=== PATIENT | female | born 1990 | race Caucasian/White ===

== ENCOUNTER 2017-04-23 12:54 | Day surgery (SDC) | payer OTHER ==
[2017-04-23] MEDS ORDERED: Lidocaine 1% PF 5 ML VIAL ONE (14:47)
--- NOTE | 2017-04-24 00:09 | OP ---
PREOPERATIVE DIAGNOSES: 1. Reflux. 2. Intermittent vomiting. 3. Chronic constipation. POSTOPERATIVE DIAGNOSES: 1. Lagrange grade A reflux esophagitis. 2. Mild erosive gastritis in the antrum, biopsied for Helicobacter pylori. 3. Normal colonoscopy. RECOMMENDATIONS: 1. MiraLax daily. 2. Increase Nexium to 40 mg p.o. b.i.d. 3. Avoid all NSAIDs. 4. If upper GI symptoms persist, consider ultrasound of the gallbladder. ANESTHESIA: TIVA. PROCEDURE IN DETAIL: After the patient was informed of the risks, benefits, and possible complicati ons of endoscopy including perforation, bleeding, reactions to medication and aspiration, informed c onsent was obtained. The patient was brought to the endoscopy suite where she was sedated in a grad ual fashion. Once she was comfortable, a bite block was placed in incisural orifice. The endoscope was advanced through the esophagus, stomach and second and third portion of duodenum and slowly rem bladimir. There was good visualization of the mucosa. There were no masses, lesions, or arteriovenous malformations identified in the duodenum. The duodenum was normal. The stomach was notable for mil d antral gastritis. Biopsies were obtained for Helicobacter pylori induced small erosions scattered in the antrum. Retroflexed views in the stomach were normal. The esophagus was notable for LA gra de A distal esophagitis. There was no evidence of Rica, masses, or any Hunter's. The scope was removed. The patient was turned in the room. A rectal examination was performed. The endoscope w as advanced through anal canal through the colon to the cecum, which was identified by ileocecal ed ve and appendiceal orifice. Terminal ileum was entered and found to be normal. The scope was then slowly removed with good visualization of the mucosa. There were no masses, lesions, or arterioveno us malformations. There were no polyps seen.
== END 2017-04-23 16:05 | disposition home or self-care (01) ==
LOC: SDC 12:54
PROVIDERS: ATTEND Internal Medicine Gastroenterology
PROC: 0DJD8ZZ Inspection of Lower Intestinal Tract, Via Natural or Artificial Opening Endoscopic (ICD-10-PCS; principal; 2017-04-23)
PROC: 0DB68ZX Excision of Stomach, Via Natural or Artificial Opening Endoscopic, Diagnostic (ICD-10-PCS; principal; 2017-04-23)
DX: K59.09 Other constipation (principal); R11.2 Nausea with vomiting, unspecified; K21.0 Gastro-esophageal reflux disease with esophagitis; K29.50 Unspecified chronic gastritis without bleeding; Z98.891 History of uterine scar from previous surgery
CPT/HCPCS: 88305; 88312; 88313; J2001

== ENCOUNTER 2017-06-29 18:09 | Emergency (ER) | payer OTHER | END 2017-06-29 23:15 | disposition home or self-care (01) | LOC: ERS 18:09 | DX: K08.89 Other specified disorders of teeth and supporting structures (principal); G43.909 Migraine, unspecified, not intractable, without status migrainosus; Z79.899 Other long term (current) drug therapy | CPT/HCPCS: 99282 ==

== ENCOUNTER 2017-07-01 14:04 | Outpatient (CLI) | payer OTHER ==
--- NOTE | 2017-07-07 08:56 | PFT ---
PATIENT HISTORY: HEIGHT: 61 IN WEIGHT: 298 LBS SMOKER: QUIT HOW LON YEARS PACKS PER DAY: 1 PRODUCTIVE COUGH: LUNG DISEASE: PHYSICIAN INTERPRETATION FINAL REPORT: The patient had good effort cooperation. PFT data is as follows , FVC 3.64 (98%), FEV1 2.97 (100%), FEV1/FVC 0.81 (102%). FEV1 and FVC fall within the normal limits. The ratio between the 2 is also normal suggesting there is no element of obstructive airflow limitation. Inspiratory and expiratory limb was on the flow volume loop normal. No priors for comparison. IMPRESSION: Overall, these pulmonary function studies are normal. Monitoring Analyst: [employer] Printer: MUSA PRADO
== END 2017-07-01 14:05 | disposition home or self-care (01) ==
LOC: CP 14:04
PROVIDERS: ATTEND Family Medicine
DX: Z01.811 Encounter for preprocedural respiratory examination (principal)
CPT/HCPCS: 94010

== ENCOUNTER 2017-07-09 22:38 | Emergency (ER) | payer OTHER ==
[2017-07-10] MEDS ORDERED: Dexamethasone 4 mg/ml Vial ONE (00:07)
== END 2017-07-10 00:17 | disposition home or self-care (01) ==
LOC: ERS 22:38
DX: T78.1XXA Other adverse food reactions, not elsewhere classified, initial encounter (principal); I88.9 Nonspecific lymphadenitis, unspecified; G43.909 Migraine, unspecified, not intractable, without status migrainosus
CPT/HCPCS: 96372; J1100

== ENCOUNTER 2017-11-09 21:46 | Emergency (ER) | payer OTHER ==
[2017-11-09] MEDS ORDERED: Ondansetron ODT 4 MG TAB ONE ×2 (22:11→22:14)
[2017-11-09 23:13] LABS: BHCG - Serum Negative (NEGATIVE); Pregs Control Background? CLEAR/WHITE (CLR/WHITE); Pregs Control Bar Appear? YES (CONTROL BAR)
[2017-11-09 23:16] LABS: #Lymphocytes 0.7 thou/uL (1.20-3.40); #Monocytes 0.3 thou/uL (0.11-0.59); #Neutrophils 2.4 thou/uL (1.40-6.50); %Basophils 0.3 % (0.0-1.0); %Eosinophils 0.8 % (0.0-10.0); %Lymphocytes 20.1 % (21.0-51.0); %Neutrophils 70.8 % (42.0-75.0); Hemoglobin 13.5 g/dL (12.0-16.0); Mean Corpuscular HGB CONC 34.7 g/dL (32.0-36.0); Mean Corpuscular Hemoglobin 32.4 pg (27.0-31.0); Mean Corpuscular Volume 93.2 fl (81.0-99.0); Mean Platelet Volume 7.9 fL (7.4-10.4); Platelet Count 165 thou/uL (130-400); RBC Distribution Width 11.9 % (11.5-14.5); Red Blood Cell (RBC) Count 4.17 mill/uL (4.20-5.40); White Blood Cell (WBC) Count 3.4 thou/uL (4.8-10.8)
[2017-11-09 23:21] LABS: ALT (SGPT) 22 U/L (8-55); AST (SGOT) 20 U/L (5-34); Albumin 3.9 g/dL (3.5-5.0); Alkaline Phosphatase 73 U/L (40-150); Anion Gap 11 mmol/L (10-20); BUN (Urea Nitrogen) 12 mg/dL (7.0-18.7); Bilirubin, Total 0.5 mg/dL (0.2-1.2); Calc. Creatinine Clearance 0 mL/min (70-130); Carbon Dioxide 24 mmol/L (22-29); Chloride 108 mmol/L (98-107); Estimated GFR-MDRD 57; Globulin 2.6 g/dL (2.4-3.5); Glucose 97 mg/dL (70-105); Lipase 15 U/L (8-78); Potassium 3.4 mmol/L (3.5-5.1); Protein, Total 6.5 g/dL (6.0-8.3); Sodium 140 mmol/L (136-145)
[2017-11-10] MEDS ORDERED: Morphine 4 MG/ML VIAL ONE (00:22)
[2017-11-10] MEDS ORDERED: Ondansetron ODT 8 MG TAB ONE ×2 (00:23→00:25)
[2017-11-10 00:36] LABS: Bilirubin Small (Negative); Blood, Urine Negative (Negative); Clarity CLOUDY (Clear); Glucose, Urine (Dipstick) Negative (Negative); Leukocyte Small (Negative); Nitrite Negative (Negative); Protein, Urine (Dipstick) Trace mg/dL (Neg-Trace); Specific Gravity, Urine 1.029 (1.002-1.036); pH, Urine 5.5 (5.0-9.0)
[2017-11-10 00:39] LABS: Bacteria/HPF 1+ HPF (None Seen); Hyaline Casts/LPF 7-10 HYALINE CAST LPF (0-3 Hyaline); Pathc Cast-AUWi Flag 1.01 (0-2.49)
[2017-11-10 00:43] LABS: Yeast-AUWi Flag 65.2 (0-25.0)
[2017-11-10 00:45] LABS: RBC/HPF 0-3 HPF (0-3); Renal Epithelial None Seen HPF (0-3); Transitional Epithelial NONE SEEN HPF (0-3); Trichomonas/HPF None Seen HPF (None Seen); Yeast-All Forms None Seen HPF (None Seen)
== END 2017-11-10 01:35 | disposition home or self-care (01) ==
LOC: ERS 21:46
DX: N39.0 Urinary tract infection, site not specified (principal); R10.9 Unspecified abdominal pain; R11.2 Nausea with vomiting, unspecified; R19.7 Diarrhea, unspecified; G43.909 Migraine, unspecified, not intractable, without status migrainosus
CPT/HCPCS: 80053; 81003; 81015; 83690; 84703; 85025; 96361; 96365; J2270; Q0162

== ENCOUNTER 2025-04-14 14:35 | Outpatient (CLI) | payer OTHER | END 2025-04-14 14:36 | disposition home or self-care (01) | LOC: ULT 14:35 | PROVIDERS: ATTEND Family Medicine | DX: E03.9 Hypothyroidism, unspecified (principal); E04.9 Nontoxic goiter, unspecified; E06.3 Autoimmune thyroiditis | CPT/HCPCS: 76536 ==